=== PATIENT | male | born 1990 | race Caucasian/White ===

== ENCOUNTER → 2016-12-09 | Outpatient (REF) | LOC: WSOH 08:13 | DX: Z00.00 Encounter for general adult medical examination without abnormal findings (principal) ==

== ENCOUNTER → 2017-01-01 | Outpatient (REF) | LOC: WSOH 09:39 | DX: Z01.89 Encounter for other specified special examinations (principal) ==

== ENCOUNTER 2021-01-16 12:38 | Emergency (ER) | payer OTHER ==
[~2021-01-16] VITALS: Ht 188 cm; Wt 88.6 kg
[2021-01-16 12:45] VITALS: TEMP 97.2
[2021-01-16 13:54] VITALS: BP 115/77; PULSE 82
== END 2021-01-16 13:54 | disposition home or self-care (01) ==
LOC: COL.ER 12:38
DX: T78.40XA Allergy, unspecified, initial encounter (principal)
CPT/HCPCS: J1100

== ENCOUNTER → 2021-02-12 | Outpatient (CLI) | payer OTHER ==
[~2021-02-12] MED LIST: XYZAL5 MG PO
== END ==
LOC: COL.RAD 07:55
DX: R13.10 Dysphagia, unspecified (principal); R06.89 Other abnormalities of breathing; R63.8 Other symptoms and signs concerning food and fluid intake; R20.0 Anesthesia of skin

== ENCOUNTER → 2021-02-21 | Outpatient (CLI) | payer OTHER | LOC: COL.RAD 12:47 | DX: G93.89 Other specified disorders of brain (principal); R06.89 Other abnormalities of breathing; R63.8 Other symptoms and signs concerning food and fluid intake; R20.0 Anesthesia of skin; R13.10 Dysphagia, unspecified | CPT/HCPCS: A9585 ==

== ENCOUNTER 2021-03-06 09:29 | Day surgery (SDC) | payer OTHER ==
[~2021-03-06] VITALS: Ht 188 cm; Wt 89.9 kg
[2021-03-06] MEDS ORDERED: XYZAL5 MG PO (10:17)
[2021-03-06 10:18] VITALS: BP 125/82; PULSE 81; TEMP 99
[2021-03-06 11:10] VITALS: BP 110/65; PULSE 73; TEMP 98.3
--- NOTE | 2021-03-06 11:10 | NUR ---
PATIENT BROUGHT BACK TO [facility] VIA CART. AMBULATED TO CHAIR WITHOUT DIFFICULTY. PLACED ON MONITORS, STABLE. PATIENT IS ALERT AND TALKING WITHOUT ISSUES, DENIES PAIN OR NAUSEA. AT BEDSIDE. HUNTER RN AT BEDSIDE TO GIVE REPORT. PATIENT REQUESTS COFFEE AND MUFFIN. CALL LIGHT WITHIN REACH, WILL MONITOR.
[2021-03-06 11:25] VITALS: BP 109/66; PULSE 66
--- NOTE | 2021-03-06 11:25 | NUR ---
TOLERATING FOOD AND DRINK WITHOUT DIFFICULTY. MD AT BEDSIDE TO EXPLAIN RESULTS. WILL MONITOR.
[2021-03-06 11:40] VITALS: BP 116/89; PULSE 64
--- NOTE | 2021-03-06 11:45 | NUR ---
PATIENT STATES HE FEELS READY TO GO HOME AT THIS TIME. IV REMOVED FROM RIGHT WRIST, TOLERATED WELL. DISCHARGE INSTRUCTIONS REVIEWED WITH PATIENT AND FAMILY, ALL QUESTIONS ANSWERED. PATIENT TO GET DRESSED AT THIS TIME.
--- NOTE | 2021-03-06 11:50 | NUR ---
PATIENT BROUGHT DOWN TO LOBBY VIA WHEEL CHAIR. TO DRIVE PATIENT HOME. ALL BELONGINGS IN HAND.
== END 2021-03-06 11:50 | disposition home or self-care (01) ==
LOC: SDCO 09:29
DX: K31.7 Polyp of stomach and duodenum (principal); K29.70 Gastritis, unspecified, without bleeding; K21.00 Gastro-esophageal reflux disease with esophagitis, without bleeding; J45.909 Unspecified asthma, uncomplicated; Z79.899 Other long term (current) drug therapy
CPT/HCPCS: J2704